=== PATIENT | male | born 1960 | race Caucasian/White ===

== ENCOUNTER → 2020-11-27 09:51 | Outpatient (CLI) | payer OTHER, SELFPAY ==
--- NOTE | ~2020-11-27 | MR_ITS ---
EXAMINATION: MR brain/brain stem wo/w con EXAM DATE: 11/27/2020 10:46 INDICATION: L facial droop, L eyelid droop lt facial droop, symptoms 6 months. TECHNIQUE: Magnetic resonance imaging (MRI) of the brain/brain stem obtained without contrast. Sagit irais T1, axial diffusion, gradient echo (T2*), T1, T2, FLAIR sequences obtained. Patient was then inj ected with 19 cc intravenous Multihance contrast. Axial and coronal postcontrast T1 weighted sequence s obtained. There is no prior study for comparison. FINDINGS: Minimal microangiopathy. There are no areas of restricted diffusion to suggest acute infarc tion. There is no acute hemorrhage seen on the T2*, a hemosiderin sensitive sequence. No intraparen chymal brain mass. The ventricles are normal in size. There are no extra-axial collections. Flow vo ids are seen in the cerebral arteries on the T2-weighted sequences consistent with their expected pat ency. The orbits are unremarkable. Soft tissue is unremarkable. Mild to moderate left maxillary s inus mucoperiosteal thickening. There are no areas of abnormal enhancement on the post contrast image s. IMPRESSION: 1. Minimal age-related microangiopathy. 2. Mild to moderate left maxillary sinus mucoperiosteal thickening. Reviewed, dictated and finalized at location B.
[2020-11-27 10:26] LABS: Estimated Glomerular Filt Rate > 60
== END ==
PROVIDERS: Visit Provider Internal Medicine
DX: H02.412 Mechanical ptosis of left eyelid (principal); I69.992 Facial weakness following unspecified cerebrovascular disease; J32.0 Chronic maxillary sinusitis; I73.9 Peripheral vascular disease, unspecified
CPT/HCPCS: 70553; A9577

== ENCOUNTER 2023-08-01 14:00 | Outpatient (RCR) | payer OTHER, SELFPAY ==
--- NOTE | 2023-07-24 17:03 | PTOPEVAL1 ---
Assessment and note entered by Sayra Sorensen, PT Evaluation Information Assessment Status Evaluation Diagnosis Dorsalgia Therapy Conditions abnormal posture weakness stiffness in left hip Subjective Information Reports two issues over last 6 months. In the belt line and under lateral ribs in the morning getting up and especially the last two months. As moves around dissipates Also have upper back with movement of UEs. Was on the right side and this morning and yesterday was left side and is more of a sharp pain. 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 Does exercise on the treadmill 4-6 days a week, hasn't been able to do this lately. 3x a week also lifts weights with machines (no free weights) Third issue would like to address. Reports upper back is hunched and ears are forward versus. Reported Pain Level Pain Score 4,8: Self Report Assessment PT Clinical Summary Pt presents with complaints of back pain in lumbar and thoracic spine. Evaluation shows possible leg length discrepancy with scoliotic curvatures, mildly increased kyphosis and forward head, significantly decreased left hip mobility, decreased gluteal strength, decreased core strength, decreased hamstring flexibility. Pt is also limited in his ability to attend therapy due to financial burden. He was educated on therapy findings, exercises were initiated and HEP issued. Pt will benefit from continued therapy with a decreased frequency and high focus on home exercises and habit changes to reduce pain and meet patient goals. Plan of Care Interventions Electrical Stimulation,Hot Pack/Cold Pack,Manual Therapy,Mechanical Traction,Neuro Re-education, Patient/Caregiver Educati,Therapeutic Activities, Therapeutic Exercise,Ultrasound PT Services Indicated Yes Treatment Frequency and 6 visits as needed over 3 months time Duration These treatments will address the objective and functional deficits as defined above. The patient will be advanced safely and appropriately in order for the patient to progress towards his/her prior level of function. Additional exercises will be introduced and as well as a comprehensive home exercise program upon discharge, if needed, ?to ensure carryover of functional gains achieved in the clinic. This treatment plan has been reviewed and agreement upon by the patient.
--- NOTE | 2023-07-24 17:04 | OPREHPOC ---
Outpatient Therapy Plan of Care This is a Multidisciplinary Plan of Care that may contain components documented by all disciplines (PT, OT, and ST.) PT Problem 1 PT Problem #1 Knowledge Deficit PT Goal 1 Goal Pt will be independent in HEP Pt will verbalize understanding of diagnosis and prognosis Target Visit 5 PT Problem 2 PT Problem #2 Pain PT Goal 1 Goal Pt will report greatest pain level at 3/10 or less to improve ADLs and activities Target Visit 3 PT Goal 2 Goal Pt will report resolution of pain to return to PLOF Target Visit 6 PT Problem 3 PT Problem #3 Impaired Flexibility PT Goal 1 Goal Pt will demo only improved hamstring flexibility by 10 degrees PT Problem 4 PT Problem #4 Impaired Range of Motion PT Goal 1 Goal Pt will demo increased left hip internal rotation by 15 degrees to offload stress on lumbar spine Target Visit 6
--- NOTE | 2023-08-29 15:07 | PCPTNOTE ---
Rehab department called and cancelled pt appointment due to staffing shortage.
--- NOTE | 2023-10-02 15:20 | PTOPDC ---
Assessment and note entered by Sayra Sorensen, PT Assessment Status Discharge - Pt Not Present Diagnosis Dorsalgia Assessment PT Clinical Summary Pt attended 2 therapy appointments including evaluation. He was unable to participate in therapy as directed secondary to financial restraints. He was provided with in-depth education related to deficits, and home exercise programs. It has been 2 months since patient's last treatment thus he is being discharged at this time due to nonattendance. Plan of Care PT Services Indicated No
== END 2023-10-08 11:15 | disposition home or self-care (01) ==
LOC: ANHPT 14:00
PROVIDERS: PCP Physician Assistant Medical; Visit Provider Physician Assistant Medical
DX: M54.50 Low back pain, unspecified (principal)
CPT/HCPCS: 97110; 97116; 97162; 97530

== ENCOUNTER 2024-01-22 08:29 | Outpatient (CLI) | payer OTHER, SELFPAY ==
--- NOTE | ~2024-01-22 | MR_ITS ---
EXAMINATION: MR brain/brain stem wo con DATE: 01/22/2024 09:17 INDICATION: Apraxia. TECHNIQUE: Magnetic resonance imaging (MRI) of the brain and brainstem was performed without intraven ous contrast. COMPARISON: Brain MRI 11/27/2020 FINDINGS: There are scattered areas of nonspecific increased T2-weighted signal intensity in the cere bral white matter and davina, which is within normal limits for the patient's age. There is no intracra nial hemorrhage, acute infarction, or abnormal intracranial mass lesion. The ventricles are normal in size. The orbits are normal. There is mucosal thickening in the paranasal sinuses. The mastoid air c ells are normal. IMPRESSION: 1. Normal aging brain. Reviewed, dictated and finalized at location A. IMPRESSION: 1. Normal aging brain.
--- NOTE | ~2024-01-22 | US_ITS ---
EXAMINATION: US carotid duplex BI DATE: 01/22/2024 09:47 INDICATION: Apraxia. TECHNIQUE: Grayscale, color Doppler, and pulsed Doppler images of the cervical carotid arteries were obtained. The degree of vessel stenosis is placed in one of the following categories: normal, <50%, 5 0-69%, >=70% but less than near-occlusion, near-occlusion, or total occlusion. Note that percent sten osis relative to normal distal artery lumen diameter is indirectly measured from velocity measurement s as described by Jah, et al. Radiology 2003; 229:340-346. COMPARISON: None. FINDINGS: RIGHT: The right common carotid artery (CCA) peak systolic velocity (PSV) is 103 cm/s. The right internal ca rotid artery (ICA) PSV is 62 cm/s. The right ICA end-diastolic velocity (EDV) is 12 cm/s. The right I CA/CCA PSV ratio is 0.6. Grayscale and color Doppler images yield an estimate of <50% diameter reduct ion from plaque in the ICA. There is antegrade flow in the right vertebral artery. LEFT: The left CCA PSV is 87 cm/s. The left ICA PSV is 67 cm/s. The left ICA EDV is 27 cm/s. The left ICA/C CA PSV ratio is 0.8. Grayscale and color Doppler images yield an estimate of <50% diameter reduction from plaque in the ICA. There is antegrade flow in the left vertebral artery. IMPRESSION: 1. <50% stenosis in the right internal carotid artery. 2. <50% stenosis in the left internal carotid artery. Reviewed, dictated and finalized at location A.
== END 2024-01-22 08:30 | disposition home or self-care (01) ==
LOC: MICIMG 08:30
PROVIDERS: PCP Physician Assistant Medical; Visit Provider Physician Assistant Medical
DX: I65.23 Occlusion and stenosis of bilateral carotid arteries (principal); R48.2 Apraxia
CPT/HCPCS: 70551; 93880